=== PATIENT | female | born 1975 | race Caucasian/White ===

== ENCOUNTER 2023-07-13 09:47 | Emergency (ER) | payer OTHER, SELFPAY ==
[2023-07-13 09:52] VITALS: BP 143/88; PULSE 63; TEMP 37; O2SAT 98; BMI 36.6
--- NOTE | 2023-07-13 10:00 | XR_ITS ---
The [address] [address] Patient Name: GERRI MILES MRN: [id number] date: 1975 Sex: F Assigned Patient Location: ER Current Patient Location: ED.MAIN Accession/Order Number: [id number] Exam Date: 07/13/2023 10:28 Report Date: 07/13/2023 10:48 At the request of: AMARJIT DUKE Procedure: XR acute abdomen series EXAMINATION: XR acute abdomen series HISTORY: rule out free air COMPARISON: No relevant comparison available. FINDINGS: LUNGS: No infiltrate, pneumothorax, or pleural effusion. MEDIASTINUM: No abnormal widening. BOWEL GAS PATTERN: Non-obstructed. No abnormal dilation or suspicious fluid levels. FREE AIR: None. CALCIFICATIONS: Several small calcifications within the pelvis; nonspecific. BONES: No fracture or visible bone lesion. OTHER: Negative. XR/XR acute abdomen series IMPRESSION: 1. No acute cardiopulmonary process. 2. Normal bowel gas pattern. 3. Several small pelvic calcifications; phleboliths are suspected, but distal ureteral stones cannot be excluded. No comparison studies. Electronically authenticated by: BETSY GALEAS Date: 07/13/2023 10:48
--- NOTE | 2023-07-13 10:12 | ED.GENADUL1 ---
HPI HPI - General Adult General Chief complaint: Abdominal Pain Stated complaint: ABDOMINAL PAIN Time Seen by Provider: 07/13/23 09:59 Source: patient Mode of arrival: walk-in Limitations: no limitations History of Present Illness HPI narrative: Patient is a 47-year-old female who is presenting to the ER today with pain out of proportion to the left lower quadrant, very histrionic with her symptoms of the all, yelling, moaning, dry heaving, not feeling well at all. Patient is having clearer mucousy diarrhea. Patient has been having moderate to severe pain since 8:00 this morning. Patient was sent home from the ER last night at 9 PM from [facility]. Patient was sent home with a prescription for Augmentin and Zofran. Patient was not given anything for pain. Patient [id number] went to [facility] helper her medication from the pharmacist this morning patient took a Zofran with no help. Patient did not have any type of pain prescriptions were given to her. Patient took nothing for pain this morning. Patient's pain is mainly to the left lower quadrant. Patient states that she is not , her tubes are tied, patient to suicide, she decided. 2-1/2 weeks ago. Patient has no fever. No chest pain or shortness of breath. No urinary complaints. All systems are negative except as noted/marked. All systems reviewed and otherwise negative. Nurses note and vital signs reviewed and patient is not hypoxic. General: The patient appears in severe distress secondary to nausea, vomiting, left lower quadrant abdominal pain. Patient is resting uncomfortably on cart. Patient is not toxic, lethargic, or listless. Skin: Warm, dry, no pallor noted. There is no rash noted. No petechiae, purpura. Head: Normocephalic, atraumatic Eye: Normal conjunctiva, no drainage, EOMI. PERRL Ears, Nose, Mouth, and Throat: oral mucosa is moist. Nares patent. Mouth without vesicles. Cardiovascular: Regular Rate and Rhythm, no murmur, gallop, rub Respiratory: Patient is in no distress, no accessory muscle use, lungs are clear to auscultation, no wheezing, rales or rhonchi Back: non-tender, no CVA tenderness bilaterally to percussion. No CT LS midline pain GI: Moderate to severe left lower quadrant tenderness palpation, mild to moderate left flank tenderness to palpation. Patient has mild suprapubic tenderness palpation, patient has mild left lower paralumbar tenderness palpation, no CVA tenderness bilateral. No right flank pain or tenderness to palpation. otherwise No tenderness to palpation, no masses appreciated. No rebound, guarding, or rigidity noted. No distention Musculoskeletal: Patient has full range of motion of all of the extremities, no motor, sensory, or focal neurological deficits Neurological: A&O x4, normal speech Psychiatric: Cooperative Related Data Home Medications ?Medication ?Instructions ?Recorded ?Confirmed amoxicillin 875 mg-potassium 1 tab PO Q12H 07/13/23 07/13/23 clavulanate 125 mg tablet ondansetron 4 mg disintegrating 4 mg PO Q6H PRN nausea and vomiting 07/13/23 07/13/23 tablet Previous Rx's ?Medication ?Instructions ?Recorded oxycodone-acetaminophen 5 mg-325 1 tab PO Q4H PRN pain #6 tabs 07/13/23 mg tablet (Percocet) Allergies Allergy/AdvReac Type Severity Reaction Status Date / Time acetaminophen [From Vicodin] Allergy Severe Nausea Verified 07/13/23 11:50 hydrocodone [From Vicodin] Allergy Severe Nausea Verified 07/13/23 11:50 latex Allergy Severe Verified 07/13/23 09:52 Opioid HPI Opioid Management Most Recent Opioid Data: Last Pain Scale 5 07/13/23 10:24 Last ED Pain Assessment 07/13/23 10:24 Last MAR Pain Assessment 07/13/23 10:15 Exam Constitutional Vital Signs, click to edit/add: Last Vital Signs Temp 98.6 F 07/13/23 09:52 Pulse 75 07/13/23 11:46 Resp 18 07/13/23 11:46 BP 130/70 07/13/23 11:46 Pulse Ox 98 07/13/23 11:46 Course Vital Signs Vital signs: Vital Signs Temperature 98.6 F 07/13/23 09:52 Pulse Rate 63 07/13/23 09:52 Respiratory Rate 20 07/13/23 09:52 Blood Pressure 143/88 H 07/13/23 09:52 Pulse Oximetry 98 07/13/23 09:52 Temperature 98.6 F 07/13/23 09:52 Pulse Rate 75 07/13/23 11:46 Respiratory Rate 18 07/13/23 11:46 Blood Pressure 130/70 07/13/23 11:46 Pulse Oximetry 98 07/13/23 11:46 Medical Decision Making [facility] Narrative Medical decision making narrative: Patient is having significant amount of pain, nausea, vomiting. Patient is very uncomfortable and in moderate distress secondary to pain. Patient will be given Toradol, morphine, Zofran, Compazine, IV fluids. Patient will have repeat lab work done, lactic acid, and x-ray to rule out free air. Chart was received from [facility] from yesterday's visit. Patient has history of anxiety, asthma, Duy's, vasculitis, and hypothyroidism. MDM note stated that patient CT shows diverticulitis. Patient was given a dose of Augmentin in the ER, vomiting had improved with Zofran. Patient uses marijuana Patient had white blood cells of 13 yesterday, patient's white blood cells were 18 today. Patient's white blood cells could be secondary to pain, nausea, vomiting, retching, and her symptoms for the past 2 hours prior to arrival The official CT report from yesterday showed mild sigmoid diverticulitis, no abscess. 1138 patient says that she feels much better at this time, no pain. Patient stated that we needed to stop the cycle. Patient will be sent home with Echo to help with pain. Patient has a prescription for Augmentin, she was able to keep her Augmentin tablet in today. Patient has a prescription for Zofran. Patient feels better after 1 L of IV fluids as well along with medication given. Repeat examination at discharge his abdomen is soft, diffusely nontender, no guarding, rebound, rigidity. No flank pain bilateral. No peritoneal signs. Minimal, minimal tenderness to left lower quadrant, otherwise no tenderness to palpation. Patient's allergy to hydrocodone is nausea and vomiting. Patient states she has had Percocet before and has tolerated that. Patient was given 6 Percocet to help with pain, she will follow-up with PCP and was referred to surgeon Lab Data Labs: Lab Results 07/13/23 Range/Units 09:58 WBC 18.9 H (4.0-11.0) 10^3/uL RBC 3.90 L (4.20-5.40) 10^6/uL Hgb 12.7 (12.0-16.0) g/dL Hct 37.3 (36.0-48.0) % MCV 95.6 (81.0-99.0) fL MCH 32.6 (26.7-34.0) pg MCHC 34.0 (29.9-35.2) g/dL RDW 13.5 (11.0-15.0) % Plt Count 436 (150-450) 10^3/uL MPV 9.7 (9.5-13.5) fL Neut % (Auto) 82.2 H (43.0-75.0) % Lymph % (Auto) 11.1 L (20.5-60.0) % [place] % (Auto) 6.0 (1.7-12.0) % Eos % (Auto) 0.0 L (0.9-7.0) % Baso % (Auto) 0.3 (0.2-2.0) % Neut # (Auto) 15.5 H (1.4-6.5) 10^3/uL Lymph # (Auto) 2.1 (1.2-3.8) 10^3/uL [place] # (Auto) 1.1 H (0.3-0.8) 10^3/uL Eos # (Auto) 0.0 (0.0-0.7) 10^3/uL Baso # (Auto) 0.1 (0.0-0.1) 10^3/uL Abs Immat Gran (auto) 0.07 H (0.00-0.03) 10^3/uL Imm/Tot Granulo (auto) 0.4 (0.0-0.5) % Sodium 140 (136-145) mmol/L Potassium 3.5 (3.5-5.1) mmol/L Chloride 103 (98-107) mmol/L Carbon Dioxide 20.8 L (21.0-32.0) mmol/L Anion Gap 19.7 BUN 18.0 (7.0-18.0) mg/dL Creatinine 1.01 (0.55-1.02) mg/dL Est GFR ( Amer) >60 (>=60) Est GFR (Non-Af Amer) 59 L (>=60) BUN/Creatinine Ratio 17.8 Glucose 130 H (74-106) mg/dL Lactate 2.4 H* (0.4-2.0) mmol/L Calcium 9.0 (8.5-10.1) mg/dL Total Bilirubin 0.9 (0.2-1.0) mg/dL AST 20 (15-37) U/L ALT 26 (14-59) U/L Alkaline Phosphatase 62 (46-116) U/L Troponin I High Sens 9.6 (4.0-51.3) pg/mL Total Protein 7.8 (6.4-8.2) g/dL Albumin 3.7 (3.4-5.0) g/dL Globulin 4.1 g/dL Albumin/Globulin Ratio 0.9 Lipase 22.0 (16.0-77.0) U/L Discharge Plan Discharge Stand Alone Forms: Portal Instructions Chief Complaint: Abdominal Pain Clinical Impression: Diverticulitis, Nausea & vomiting, Leukocytosis Patient Disposition: Home, Self-Care Time of Disposition Decision: 11:45 Condition: Fair Prescriptions / Home Meds: New oxycodone-acetaminophen [Percocet] 5-325 mg tablet 1 tab PO Q4H PRN (Reason: pain) Qty: 6 0RF No Action amoxicillin-pot clavulanate 875-125 mg tablet 1 tab PO Q12H ondansetron 4 mg tablet,disintegrating 4 mg PO Q6H PRN (Reason: nausea and vomiting) Print Language: Occitan Instructions: Diverticulitis (ED), Acute Nausea and Vomiting (ED), Leukocytosis (ED) Additional Instructions: Increase liquids over the weekend and today, Gatorade, Powerade, water, clear liquids. Use soft diet on Sunday or Sunday. Education given on diverticulitis. Your white blood cells have increased from last evening till today from 13 to 18, he has no other significant signs of acute infection. Use Zofran as needed to help increase fluids. Start your next antibiotic tomorrow. Follow-up with PCP, surgeon has been referred to you as well Referrals: Magno Adkins DO [Physician] - 1 week Physician,Non-Staff, MD [Primary Care Provider] - 1 week
[2023-07-13] MEDS: ONDANSETRON PF 4 MG/2 ML VIAL IV (10:15)
[2023-07-13] MEDS: MORPHINE SULFATE 4 MG/ML VIAL IV (10:15)
[2023-07-13] MEDS: 0.9 % SODIUM CHLORIDE 1,000 ML 999 ML IV (10:15)
[2023-07-13] MEDS: PROCHLORPERAZINE 10 MG/2 ML VIAL IV (10:16)
[2023-07-13] MEDS: KETOROLAC TROMETHAMINE 30 MG/ML VIAL 15 MG IVP (10:17)
[2023-07-13] MEDS: DICYCLOMINE HCL 20 MG/2 ML VIAL IM (10:18)
[2023-07-13 10:20] LABS: Basophils Absolute Auto 0.1 10^3/uL (0.0-0.1); Basophils Percent Auto 0.3 % (0.2-2.0); Hematocrit 37.3 % (36.0-48.0); Hemoglobin 12.7 g/dL (12.0-16.0); Immature Granulocytes Abs Auto 0.07 10^3/uL (0.00-0.03); Immature Granulocytes Pct Auto 0.4 % (0.0-0.5); Lymphocytes Absolute Auto 2.1 10^3/uL (1.2-3.8); Lymphocytes Percent Auto 11.1 % (20.5-60.0); Mean Corpuscular Hemoglobin 32.6 pg (26.7-34.0); Mean Corpuscular Volume 95.6 fL (81.0-99.0); Mean Platelet Volume 9.7 fL (9.5-13.5); Monocytes Absolute Auto 1.1 10^3/uL (0.3-0.8); Neutrophils Absolute Auto 15.5 10^3/uL (1.4-6.5); Neutrophils Percent Auto 82.2 % (43.0-75.0); Platelet Count 436 10^3/uL (150-450); Red Cell Distribution Width 13.5 % (11.0-15.0); White Blood Count 18.9 10^3/uL (4.0-11.0)
[2023-07-13 10:35] VITALS: BP 136/87; PULSE 77; O2SAT 99
[2023-07-13 10:55] LABS: Alanine Aminotransferase 26 U/L (14-59); Albumin Globulin Ratio 0.9; Albumin Level 3.7 g/dL (3.4-5.0); Alkaline Phosphatase 62 U/L (46-116); Anion Gap 19.7; Aspartate Amino Transferase 20 U/L (15-37); BUN Creatinine Ratio 17.8; Bilirubin Total 0.9 mg/dL (0.2-1.0); Carbon Dioxide 20.8 mmol/L (21.0-32.0); Chloride 103 mmol/L (98-107); Estimated GFR (African America >60 (>=60); Estimated GFR (Non-African Ame 59 (>=60); Globulin 4.1 g/dL; Glucose 130 mg/dL (74-106); Potassium 3.5 mmol/L (3.5-5.1); Sodium 140 mmol/L (136-145); Total Protein 7.8 g/dL (6.4-8.2); Troponin I High Sensitivity 9.6 pg/mL (4.0-51.3)
[2023-07-13 11:13] LABS: Lactate/Lactic Acid 2.4 mmol/L (0.4-2.0)
[2023-07-13 11:46] VITALS: BP 130/70; PULSE 75; O2SAT 98
== END 2023-07-13 11:57 | disposition home or self-care (01) ==
PROVIDERS: Emergency Provider Emergency Medicine
DX: K57.32 Diverticulitis of large intestine without perforation or abscess without bleeding (principal); R11.2 Nausea with vomiting, unspecified; D72.829 Elevated white blood cell count, unspecified
CPT/HCPCS: 36415; 74022; 80053; 83605; 83690; 84484; 85025; 96361; 96372; 96374; 96375; 99285; J0500